=== PATIENT | female | born 1990 ===

== ENCOUNTER 2018-01-21 15:44 | Emergency (ER) | payer SELFPAY ==
[2018-01-21 15:46] VITALS: BP 145/90; PULSE 93; RESP 12; TEMP 98.2; O2SAT 99
[2018-01-21] MEDS ORDERED: FLUT1SPR5 EACH NARE (18:13)
[2018-01-21] MEDS ORDERED: CLIN300C5 PO (18:13)
--- NOTE | 2018-01-21 18:24 | PD ---
HPI Chief Complaint: Cold / Flu Symptoms Time Seen by Provider: 18:09 Travel History International Travel<30 days: No Contact w/Intl Traveler<30days: No Traveled to known affect area: No History of Present Illness HPI 27-year-old female presents for evaluation of right ear pain, sore throat, congestion. Symptoms started 2 days ago. Symptoms are mild, no aggravating or alleviating factors. No fevers or chills, recent travel, rash. No other complaints. PFSH Social History Alcohol Use: No Tobacco Use: No Allergies-Medications (Allergen,Severity, Reaction): Coded Allergies: Penicillins (Verified Allergy, Unknown, 01/21/18) Reported Meds & Prescriptions Reported Meds & Active Scripts Active Flonase Nasal [place] (Fluticasone Nasal [place]) 50 Mcg/Act [place] 100 Mcg EACH NARE BID Clindamycin (Clindamycin HCl) 300 Mg Cap 300 Mg PO TID 10 Days Review of Systems General / Constitutional: No: Fever, Chills HENT: Positive: Sore Throat, Congestion, Earache Cardiovascular: No: Chest Pain or Discomfort Respiratory: No: Cough Physical Exam Narrative GENERAL: Well-developed well-nourished female in no acute distress SKIN: Warm and dry. HEAD: Atraumatic. Normocephalic. EYES: Pupils equal and round. No scleral icterus. No injection or drainage. ENT: No nasal bleeding or discharge. Mucous membranes pink and moist. Right tympanic membrane is mildly bulging and erythematous. NECK: Trachea midline. No JVD. CARDIOVASCULAR: Regular rate and rhythm. No murmur appreciated. RESPIRATORY: No accessory muscle use. Clear to auscultation. Breath sounds equal bilaterally. Data Data Last Documented VS Vital Signs Date Time Temp Pulse Resp B/P (MAP) Pulse Ox O2 Delivery O2 Flow Rate FiO2 01/21/18 15:46 98.2 93 12 145/90 (108) 99 Orders Orders Ed Discharge Order (01/21/18 18:13) [facility] Medical Decision Making Medical Screen Exam Complete: Yes Emergency Medical Condition: Yes Medical Record Reviewed: Yes Differential Diagnosis Otitis media, sinusitis, bronchitis, pneumonia Narrative Course Examination is consistent with right otitis media. She is allergic to penicillin based medications. She will be discharged with clindamycin and Flonase. Diagnosis Primary Impression: Right otitis media Additional Instructions: Medication as prescribed. Return for any emergent medical conditions. Med/Other Pt SpecificInfo: Prescription(s) given Scripts Fluticasone Nasal [place] (Flonase Nasal [place]) 50 Mcg/Act [place] 100 MCG EACH NARE BID for Allergies, #1 BOTTLE 0 Refills Prov: Tatianna Munoz MD 01/21/18 Clindamycin (Clindamycin) 300 Mg Cap 300 MG PO TID for Infection for 10 Days, CAP 0 Refills Prov: Tatianna Munoz MD 01/21/18 Disposition: 01 DISCHARGE HOME Condition: Stable Howie Calhoun Jan 21, 2018 18:24
== END 2018-01-21 19:34 | disposition home or self-care (01) ==
LOC: NEPK 15:44
DX: H66.91 Otitis media, unspecified, right ear (principal); Z88.0 Allergy status to penicillin
CPT/HCPCS: 99283